=== PATIENT | female | born 1995 ===

== ENCOUNTER 2024-09-23 12:58 | Outpatient (CLI) | payer OTHER ==
[~2024-09-23] VITALS: Ht 152.4 cm; Wt 65.2 kg
[2024-09-23 13:21] VITALS: BP 96/65; O2SAT 97
[2024-09-23] MEDS ORDERED: HOME MED LIST COMPLETE! XX SCH (14:20)
[2024-09-23 14:52] VITALS: BP 97/61
== END 2024-09-23 16:35 | disposition home or self-care (01) ==
LOC: M LDO 12:58
PROVIDERS: ATTEND Obstetrics & Gynecology
DX: O36.5930 Maternal care for other known or suspected poor fetal growth, third trimester, not applicable or unspecified (principal); Z3A.36 36 weeks gestation of pregnancy
CPT/HCPCS: 59025; 76811; 76817; 76819; 76820; G0463